=== PATIENT | female | born 1990 | race Caucasian/White ===

== ENCOUNTER 2021-11-08 00:53 | Inpatient (IN) | payer BC ==
[2021-11-08] MEDS ORDERED: Lidocaine 1% 50 ML MDV INJECT ONE (01:31)
[2021-11-08] MEDS ORDERED: Sodium Chloride 0.9% 10 ML Syringe FLUSH PRN (01:31)
[2021-11-08] MEDS ORDERED: Nalbuphine HCl 10 MG/ 1ML Amp IVPUSH PRN (01:31)
[2021-11-08] MEDS ORDERED: Calcium Carbonate 500 MG Tab.Chew PO PRN (01:31)
[2021-11-08] MEDS ORDERED: Oxytocin/Lactated Ringers 10 UNIT/1,000 ML BAG IV SCH (01:45)
[2021-11-08] MEDS: Lactated Ringers 1,000 ML IV SCH ×4 (05:01→20:43)
[2021-11-08] MEDS: Oxytocin/Lactated Ringers 10 UNIT/1,000 ML BAG IV SCH ×2 (05:02→16:38)
[2021-11-08] MEDS ORDERED: fentaNYL 100 MCG/2 ML SDV EPIDUR PRN (09:00)
[2021-11-08] MEDS ORDERED: ePHEDrine 50 MG/ML SDV IVPUSH PRN (09:00)
[2021-11-08] MEDS ORDERED: diphenhydrAMINE 50 MG/ML SDV IVPUSH PRN (09:00)
[2021-11-08] MEDS: Sodium Chloride 0.9% 10 ML Syringe FLUSH SCH (09:56)
[2021-11-08] MEDS ORDERED: Bupivacaine 0.25% 10 ML SDV ONE (11:00)
[2021-11-08] MEDS: Bupivacaine/fentaNYL/NS 100 ML Bag EPIDUR PRN (19:16)
[2021-11-09] MEDS: Lactated Ringers 1,000 ML IV SCH ×4 (01:11→12:10)
[2021-11-09] MEDS: Bupivacaine/fentaNYL/NS 100 ML Bag EPIDUR PRN ×2 (03:51→11:35)
[2021-11-09] MEDS: Oxytocin/Lactated Ringers 10 UNIT/1,000 ML BAG IV SCH (03:56)
[2021-11-09] MEDS ORDERED: Acetaminophen 325 MG Tab PO ONE (11:25)
[2021-11-09] MEDS ORDERED: Gentamicin 40 MG/ML 20 ML MDV IV ONE (12:32)
[2021-11-09] MEDS ORDERED: Clindamycin Phosphate in D5W 900 MG in Premix Bag 1 BAG IV ONE ×2 (12:32)
[2021-11-09] MEDS ORDERED: Azithromycin 500 MG in Sodium Chloride 0.9% 250 ML IV ONE (12:46)
[2021-11-09] MEDS ORDERED: Metoclopramide 10 MG/2 ML SDV IVPUSH ONE (12:47)
[2021-11-09] MEDS ORDERED: Citric Acid/Sodium Citrate Solution 30 ML Cup PO ONE (12:47)
[2021-11-09] MEDS: Sodium Chloride 0.9% 10 ML Syringe FLUSH SCH ×2 (12:54→12:55)
[2021-11-09] MEDS ORDERED: Bupivacaine 0.5% 30 ML SDV ONE (12:57)
[2021-11-09] MEDS ORDERED: Oxytocin 10 Units/1 ML SDV ONE (13:00)
[2021-11-09] MEDS ORDERED: fentaNYL 100 MCG/2 ML SDV ONE (13:00)
[2021-11-09] MEDS ORDERED: Ondansetron 4 MG/2 ML SDV ONE (13:00)
[2021-11-09] MEDS ORDERED: Lidocaine 2% with EPINEPHrine 1:200,000 20 ML SDV ONE ×2 (13:00→14:03)
[2021-11-09] MEDS ORDERED: Lactated Ringers 2,000 ML ONE (13:00)
[2021-11-09] MEDS ORDERED: Ketorolac 30 MG/ML SDV ONE (13:00)
[2021-11-09] MEDS ORDERED: Morphine PF 10 MG/10 ML SDV ONE (13:01)
[2021-11-09] MEDS ORDERED: Phenylephrine 1% 10 MG/ML SDV ONE (13:02)
[2021-11-09] MEDS ORDERED: fentaNYL 100 MCG/2 ML SDV IVPUSH PRN (13:45)
[2021-11-09] MEDS ORDERED: ePHEDrine 50 MG/ML SDV IVPUSH PRN ×2 (13:45→18:01)
[2021-11-09] MEDS ORDERED: diphenhydrAMINE 50 MG/ML SDV IVPUSH PRN ×2 (13:45→18:01)
[2021-11-09] MEDS ORDERED: Phenylephrine 1% 10 MG/ML SDV IVPUSH PRN (13:45)
[2021-11-09] MEDS ORDERED: HYDROmorphone 0.5 MG/0.5 ML Syringe IVPUSH PRN (13:45)
[2021-11-09] MEDS ORDERED: Ondansetron 4 MG/2 ML SDV IVPUSH PRN (13:45)
[2021-11-09] MEDS ORDERED: Dexmedetomidine 200 MCG/2 ML SDV ONE (14:03)
[2021-11-09] MEDS ORDERED: ePHEDrine 50 MG/ML SDV ONE (14:14)
[2021-11-09] MEDS ORDERED: Sodium Chloride 0.9% 1,000 ML IV SCH (14:45)
[2021-11-09] MEDS ORDERED: Ketorolac 30 MG/ML SDV IVPUSH SCH (18:00)
[2021-11-09] MEDS ORDERED: Dextrose 5%-Lactated Ringers 1,000 ML IV SCH (18:01)
[2021-11-09] MEDS ORDERED: Ibuprofen 600 MG Tab PO PRN (18:01)
[2021-11-09] MEDS ORDERED: Naloxone 0.4 MG/ML SDV IVPUSH PRN (18:01)
[2021-11-09] MEDS: Clindamycin Phosphate in D5W 900 MG in Premix Bag 1 BAG IV SCH ×2 (19:26)
[2021-11-09] MEDS: Ketorolac 30 MG/ML SDV IVPUSH SCH (21:12)
[2021-11-10] MEDS: Clindamycin Phosphate in D5W 900 MG in Premix Bag 1 BAG IV SCH ×6 (00:26→12:35)
[2021-11-10] MEDS: Ketorolac 30 MG/ML SDV IVPUSH SCH ×2 (02:00→08:08)
[2021-11-10] MEDS: Prenatal Multivitamin with Calcium/Folic Acid/Iron Tab PO SCH (08:08)
[2021-11-10] MEDS: Acetaminophen/oxyCODONE 325-5 MG Tab PO PRN ×2 (15:21→20:52)
[2021-11-10] MEDS: Docusate Sodium 100 MG Cap PO PRN ×2 (18:27→20:52)
[2021-11-10] MEDS: Ibuprofen 600 MG Tab PO PRN (23:57)
[2021-11-11] MEDS: Acetaminophen/oxyCODONE 325-5 MG Tab PO PRN ×3 (01:57→16:39)
[2021-11-11] MEDS: Prenatal Multivitamin with Calcium/Folic Acid/Iron Tab PO SCH (09:04)
[2021-11-11] MEDS: Ibuprofen 600 MG Tab PO PRN ×2 (09:04→16:38)
[2021-11-11] MEDS: Docusate Sodium 100 MG Cap PO PRN (09:04)
[2021-11-11 14:41] VITALS: BP 129/70; PULSE 92
== END 2021-11-11 18:22 | disposition home or self-care (01) | DRG 540 ==
LOC: OBSVTOIN 00:53 → JD.OB 00:53
PROVIDERS: ADMIT Obstetrics & Gynecology; ATTEND Obstetrics & Gynecology
PROC: 4A1HXCZ Monitoring of Products of Conception, Cardiac Rate, External Approach (ICD-10-PCS; 2021-11-08)
PROC: 10H07YZ Insertion of Other Device into Products of Conception, Via Natural or Artificial Opening (ICD-10-PCS; 2021-11-08)
PROC: 3E033VJ Introduction of Other Hormone into Peripheral Vein, Percutaneous Approach (ICD-10-PCS; 2021-11-08)
PROC: 0U7C7ZZ Dilation of Cervix, Via Natural or Artificial Opening (ICD-10-PCS; 2021-11-08)
PROC: 10D00Z1 Extraction of Products of Conception, Low, Open Approach (ICD-10-PCS; principal; 2021-11-09)
DX: O24.420 Gestational diabetes mellitus in childbirth, diet controlled (principal); Z3A.39 39 weeks gestation of pregnancy; Z37.0 Single live birth; O99.214 Obesity complicating childbirth; O62.2 Other uterine inertia; O34.211 Maternal care for low transverse scar from previous cesarean delivery; O41.1230 Chorioamnionitis, third trimester, not applicable or unspecified; O76 Abnormality in fetal heart rate and rhythm complicating labor and delivery; O34.13 Maternal care for benign tumor of corpus uteri, third trimester
CPT/HCPCS: 36415; 51702; 59025; 82947; 85025; 86592; 86850; 86900; 86901; 94762; A9270-GY; C1726; J1885; J2274; J2370; J2405; J2590; J2765; J3010; J3490; J7030; J7120

== ENCOUNTER 2024-01-07 11:32 | Emergency (ER) | payer BC ==
[2024-01-07 12:28] LABS: BASOPHILS PERCENT AUTO 0.2 % (0.0-1.0); EOSINOPHILS ABSOLUTE AUTO 0.2 K/mm3 (0.0-0.4); EOSINOPHILS PERCENT AUTO 1.9 % (0.0-6.0); HEMATOCRIT 44.6 % (37.0-47.0); HEMOGLOBIN 15.6 gm/dl (12.0-16.0); IMMATURE GRAN ABSOLUTE AUTO 0.03 K/mm3 (0.00-0.05); IMMATURE GRAN PERCENT AUTO 0.3 % (0.0-0.4); LYMPHOCYTES ABSOLUTE AUTO 1.1 K/mm3 (1.0-4.8); LYMPHOCYTES PERCENT AUTO 11.7 % (24.0-44.0); MEAN CORPUSCULAR VOLUME 91.6 fl (83.0-99.0); MEAN PLATELET VOLUME 9.8 fl (9.4-12.3); MONOCYTES ABSOLUTE AUTO 0.7 K/mm3 (0.0-0.8); NEUTROPHILS ABSOLUTE AUTO 7.2 K/mm3 (1.8-7.7); NEUTROPHILS PERCENT AUTO 77.9 % (41.0-71.0); PLATELET COUNT,PLT 326 K/mm3 (150-400); RED BLOOD CELL COUNT 4.87 M/mm3 (4.10-5.30); WHITE BLOOD CELL COUNT,WBC 9.28 K/mm3 (3.9-11.3)
[2024-01-07] MEDS: diphenhydrAMINE 50 MG/ML SDV IVPUSH ONE (12:28)
[2024-01-07] MEDS: Metoclopramide 10 MG/2 ML SDV IVPUSH ONE (12:28)
[2024-01-07] MEDS: Lactated Ringers 1,000 ML IV ONE (12:28)
[2024-01-07 12:52] LABS: A/G RATIO 1.1 (1-2); ALBUMIN 4.1 g/dl (3.4-5.0); ANION GAP 13.5 (5-15); BILIRUBIN TOTAL 0.7 mg/dL (0.2-1.0); BUN/CREATININE RATIO 14.4 (14-18); CALCIUM 8.9 mg/dL (8.5-10.1); CREATININE 0.9 mg/dL (0.55-1.02); EST CRCL DRUG DOSING (CG) 67.72 mL/min; MAGNESIUM 1.4 mg/dL (1.8-2.4); POTASSIUM,K 3.5 mEq/L (3.5-5.1); PROTEIN TOTAL,TP 7.9 g/dl (6.4-8.2)
[2024-01-07 12:55] LABS: LACTIC ACID 0.8 mmol/L (0.4-2.0)
[2024-01-07 14:00] LABS: APPEARANCE,URINE CLEAR (Clear); BILIRUBIN,URINE 1+ (Negative); COLOR,URINE YELLOW (Yellow); GLUCOSE,URINE NEGATIVE (Negative); KETONES,URINE 3+ (Negative); LEUKOCYTE ESTERASE,URINE NEGATIVE (Negative); NITRITE,URINE NEGATIVE (Negative); OCCULT BLOOD,URINE NEGATIVE (Negative); PROTEIN,URINE 1+ (Negative); UROBILINOGEN,URINE 0.2 (0.2-1.0)
[2024-01-07] MEDS: Sodium Chloride 0.9% 1,000 ML IV ONE (14:16)
[2024-01-07] MEDS: Magnesium Sulfate/Water 2 GM in Premix Bag 1 BAG IV ONE (14:16)
[2024-01-07 14:24] LABS: BACTERIA,URINE FEW /hpf (FEW); MUCUS,URINE MODERATE /hpf (FEW); RBC,URINE NOT SEEN /hpf (0-5); WBC,URINE 0-5 /hpf (0-5)
[2024-01-07 17:05] VITALS: PULSE 96
[2024-01-07 17:06] VITALS: BP 123/74
== END 2024-01-07 16:57 | disposition home or self-care (01) ==
LOC: JD.ED 11:32
DX: R11.2 Nausea with vomiting, unspecified (principal); R19.7 Diarrhea, unspecified; E86.0 Dehydration; E66.9 Obesity, unspecified; Z68.30 Body mass index [BMI] 30.0-30.9, adult; Z88.0 Allergy status to penicillin
CPT/HCPCS: 36415; 80053; 81001; 81025; 83605; 83690; 83735; 85025; 87635; 96361; 96365; 96366; 96375; 99284; J1200; J2765; J3475; J7030; J7120; U0002